=== PATIENT | female | born 1950 | race Caucasian/White ===

== ENCOUNTER 2018-04-01 05:25 | Inpatient (IN) | payer OTHER ==
[2018-03-25 13:09] LABS: HEMATOCRIT 41.3 % (37.0-47.0); HEMOGLOBIN 14.1 gm/dL (12.0-15.0); MCHC 34.2 g/dL (28.0-37.0); MCV 87.6 fL (80.0-100.0); RBC 4.71 mil/uL (4.20-5.00); RDW 13.5 % (10.5-14.5); WBC 6.4 thou/uL (4.0-11.0)
[2018-03-25 13:18] LABS: ALBUMIN 4.2 g/dL (3.4-5.0); CALCIUM 9.4 mg/dL (8.5-10.1); CREATININE 0.9 mg/dL (0.6-1.0); POTASSIUM 4.3 mmol/L (3.5-5.1)
[2018-03-25 13:21] LABS: URINE BILIRUBIN NEGATIVE (Negative); URINE BLOOD NEGATIVE (Negative); URINE CLARITY CLEAR; URINE COLOR YELLOW; URINE GLUCOSE-RANDOM* NEGATIVE (Negative); URINE KETONES NEGATIVE (Negative); URINE LEUKOCYTES-REFLEX NEGATIVE (Negative); URINE NITRITE-REFLEX NEGATIVE (Negative); URINE PROTEIN (DIPSTICK) NEGATIVE (Negative); URINE SPECIFIC GRAVITY 1.015 (1.005-1.035); URINE UROBILINOGEN 0.2 E.U./dl (0.2-1.0)
[2018-03-25 13:23] LABS: PROTIME 10.7 Seconds (9.3-11.4)
[~2018-04-01] VITALS: Ht 162.6 cm; Wt 79.8 kg
--- NOTE | ~2018-04-01 | O ---
[facility] [place] [address] OPERATIVE REPORT Name: MARCOS KELLER Room #: 150-1 ADM IN M.R.#: [id number] Admission: 04/01/18 Attend Phys: Jeff Danielle MD Discharge: Date of : 52 Report #: [id number] THIS REPORT FOR: //name// CC: Zonia Danielle DATE OF SERVICE: 04/01/2018 PREOPERATIVE DIAGNOSIS: Right hip osteoarthritis. POSTOPERATIVE DIAGNOSIS: Right hip osteoarthritis. PROCEDURE: Right total hip arthroplasty. SURGEON: Jeff Danielle MD. HEAD OF PRECISION TARGETING: Elizabeth Oneal PA-C. INDICATIONS FOR HEAD OF PRECISION TARGETING: Throughout the case, extensive retraction and manipulation of the hip was required including dislocation and reduction. This was afforded to me by my visitor service assistant. ANESTHESIA: General endotracheal. IMPLANTS: Mccabe [employer] Nephew size 12 high offset Synergy press fit stem, a size 36+4 cobalt chrome head and a size 52 R3 acetabular cup. ESTIMATED BLOOD LOSS: 150 mL. COMPLICATIONS: None. SPECIMENS: None. CONDITION UPON LEAVING THE OPERATING ROOM: Stable. INDICATION FOR PROCEDURE: The patient is a 67-year-old female with severe right hip osteoarthritis. She failed conservative measures for this and after discussion with her, she elected for right total hip arthroplasty. DESCRIPTION OF PROCEDURE: Risks, benefits, alternatives, complications were discussed in detail with the patient including but not limited to risk of anesthesia, risk of damage to nerves, arteries, blood vessels, risk for infection, bleeding, risk for continued hip pain, leg length discrepancy, instability and need for reoperation. Informed consent was obtained from the patient. Right hip was appropriately marked in the preoperative holding area. IV Ancef was given for preoperative antibiotics. She was brought to the [facility] [address] [place] [address] OPERATIVE REPORT Name: MARCOS KELLER Room #: 150-1 [facility] IN [place].Demi.#: [id number] Admission: 04/01/18 Attend Phys: Jeff Danielle MD Discharge: Date of : 52 Report #: [id number] operating room and placed in supine position on operating room table. General endotracheal anesthesia was induced without complication. She was then placed in the left lateral decubitus position with the right hip uppermost. Right hip and lower extremity were prepped and draped in normal sterile fashion. Timeout was performed properly identifying the patient and procedure as well as instrumentation. All in the operating room were in agreement. A standard posterior approach to the hip was made with 10 blade through the skin. Dissection was taken down to the fascia with Bovie cautery and a Jung elevator was used to clean off the fascia. Fresh 10 blade was used to make a fascial incision. This was taken proximally and distally with curved Kaur scissor. Charnley retractor was placed. Trochanteric bursa was taken down with Bovie cautery. Piriformis tendon was identified, tagged and taken down with Bovie. Short external rotators were also taken down with Bovie cautery. Capsulotomy was made and capsule ends were tagged for later repair. The hip was dislocated, and there was extensive osteoarthritic change of the femoral head. Femoral neck cut was made 1 cm proximal to lesser trochanter based on preoperative templating and the femoral head was removed. Deep acetabular retractors were placed. Labrum was removed sharply. Pulvinar was removed with Bovie cautery. Acetabulum was then sequentially reamed up to a size 52, at which point, there was excellent bleeding cancellous bone. This trialed with a size 51 trial and found to have a good fit. A final size 52 R3 acetabular cup was then placed and seated. One acetabular screw was placed for backup fixation and polyethylene liner for 36 head was placed. After this, attention was turned to the femur. This was reamed and broached up to a size 12, at which point a size 12 broach was stable, was trialed with a high offset neck and a 36+0 head. Hip was reduced, taken through range of motion, found to be stable, however, found to have a somewhat shortened leg length on the right compared to left. It was felt this could be made up for with final implant. Hip was dislocated and broach was removed. Final size 12 high offset Synergy press fit stem was placed. This was then trialed with a 36+4 head. Hip was reduced, taken through range of motion, found to be stable, found to have equal leg lengths. Hip was dislocated one last time, and a final size 36+4 cobalt chrome head was placed. Hip was reduced, taken through range of motion, found to be stable, found to have equal leg lengths. The hip joint was thoroughly irrigated with normal saline. Periarticular injection consisting of morphine, ropivacaine, epinephrine and Toradol was placed around the hip joint capsule. A gram of vancomycin was placed deep in the joint capsule and piriformis were repaired with 0 FiberWire. Fascia was closed with 0 Vicryl, skin was closed with 2-0 Vicryl, 3-0 Monocryl. Dermabond and a FATOU dressing were applied. The patient tolerated this procedure well and went to the recovery room under the care of Anesthesia postoperatively. By: [id number] Jeff Danielle MD /nt
[~2018-04-01 05:25] MED LIST: AMBIEN 5 MG TABL5 M1 PO; BENTYL 10 MG CA10 M1 PO; CYMBALTA30 MG PO; IPRATROPIU0.2 MG/1 M NASAL; NORCO 5-325 TA1 EACH PO; SIMVASTATIN40 MG PO; SYNTHROID75 MCG PO
[2018-04-01 11:04] VITALS: BP 132/61
[2018-04-01 17:05] VITALS: BP 109/102
[2018-04-01 19:09] VITALS: BP 144/79
[2018-04-02 04:38] VITALS: BP 121/63
--- NOTE | 2018-04-02 05:33 | NUR ---
Pt. rested quietly at intervals during the night when checked on during frequent rounds. She has been given po pain meds (see emar) for c/o right hip pain with some relief noted. Pt. has been up to the bedside comode with assist of one and gait belt. Hip precautions taken. Dressing to right hip is dry and intact.
[2018-04-02 05:54] LABS: HEMATOCRIT 29.3 % (37.0-47.0); HEMOGLOBIN 10.1 gm/dL (12.0-15.0); MCH 30.3 pg (26.0-34.0); MCHC 34.3 g/dL (28.0-37.0); MCV 88.5 fL (80.0-100.0); RBC 3.31 mil/uL (4.20-5.00); RDW 13.5 % (10.5-14.5); WBC 12.9 thou/uL (4.0-11.0)
[2018-04-02 07:52] VITALS: BP 124/62
[2018-04-02] MEDS ORDERED: NEURONTIN 300300 M1 PO (10:02)
[2018-04-02] MEDS ORDERED: TRI-BUFFERED A325 M1 PO (10:02)
--- NOTE | 2018-04-02 10:15 | NUR ---
PT ADMITTED RELATED TO RT TOTAL HIP REPLACEMENT. CM REVIEWED CHART AND SPOKE WITH CARE TEAM. CM MET WITH PT AT BEDSIDE THIS DAY PT IS A&OX4. CM ROLE INTRODUCED. PT INDICATED SHE LIVES ALONE IN A HOUSE WITH 1 STEP TO ENTER AND NO STEPS INSIDE. 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 PT IS TO PURCHASE A BSC UPON DC. PT WANTED HOME HEALTH AND WAS AGREEABLE WITH REFERRAL BEING SENT TO [facility]. PT TO HIRE AID THROUGH ANOTHER SUPPLEMENTAL INSURANCE. PT PLANS TO RETURN HOME TODAY DEPENDING ON HOW SHE DOES WITH THERAPY. CM TO FOLLOW INDICATED WITH DC PLANNING.
[2018-04-02 13:42] VITALS: BP 124/62
--- NOTE | 2018-04-02 15:17 | NUR ---
DIS PT IS FOR DC TODAY, IV DC'D. PT/OT OK FOR DC. DC PACKET PROVIDED. MED SCRIPTS GIVEN.
== END 2018-04-02 15:29 | disposition home health service (06) | DRG 470 ==
LOC: 4W 05:25 → TBA 05:25 → PRE 05:44 → 4W 17:11 → ENTRNSPT 04-02 15:16 → EDTRNSPTSTS 04-02 15:21 → 4W 04-02 15:29
PROVIDERS: ADMIT Orthopaedic Surgery
PROC: 0SR901Z Replacement of Right Hip Joint with Metal Synthetic Substitute, Open Approach (ICD-10-PCS; principal; 2018-04-01)
DX: M16.11 Unilateral primary osteoarthritis, right hip (principal); E03.9 Hypothyroidism, unspecified; E78.5 Hyperlipidemia, unspecified; F32.9 Major depressive disorder, single episode, unspecified; Z98.1 Arthrodesis status
CPT/HCPCS: 10047; 50010; 50101; 50382; 50414; 53000; 53078; 54118; 56524; 56527; 56528; 56530; 57095; 57103; 62110; 62900; 70005

== ENCOUNTER → 2018-06-13 | Outpatient (CLI) | payer OTHER ==
[~2018-06-13] MED LIST changes: +NEURONTIN 300300 M1 PO; +TRI-BUFFERED A325 M1 PO
== END ==
LOC: MRI 09:32
DX: M22.42 Chondromalacia patellae, left knee (principal); M25.551 Pain in right hip

== ENCOUNTER 2019-01-08 07:54 | Inpatient (IN) | payer OTHER ==
[2018-12-25 08:59] LABS: URINE BILIRUBIN NEGATIVE (Negative); URINE BLOOD NEGATIVE (Negative); URINE CLARITY CLEAR; URINE COLOR YELLOW; URINE GLUCOSE-RANDOM* NEGATIVE (Negative); URINE KETONES NEGATIVE (Negative); URINE LEUKOCYTES-REFLEX TRACE (Negative); URINE NITRITE-REFLEX NEGATIVE (Negative); URINE PROTEIN (DIPSTICK) NEGATIVE (Negative); URINE SPECIFIC GRAVITY 1.015 (1.005-1.035); URINE UROBILINOGEN 0.2 E.U./dl (0.2-1.0)
[2018-12-25 09:02] LABS: HEMOGLOBIN 13.3 gm/dL (12.0-15.0); MCH 29.2 pg (26.0-34.0); MCHC 33.4 g/dL (28.0-37.0); MCV 87.5 fL (80.0-100.0); RBC 4.57 mil/uL (4.20-5.00); RDW 13.4 % (10.5-14.5)
[2018-12-25 09:12] LABS: PROTIME 10.5 Seconds (9.3-11.4)
[2018-12-25 09:22] LABS: ALBUMIN 3.9 g/dL (3.4-5.0); CALCIUM 8.5 mg/dL (8.5-10.1); CREATININE 0.8 mg/dL (0.6-1.0); POTASSIUM 3.6 mmol/L (3.5-5.1)
[~2019-01-08] VITALS: Ht 152.4 cm; Wt 76.2 kg
[~2019-01-08 07:54] MED LIST changes: +CALCIUM500 MG PO; +CO-ENZYME Q-1010 MG PO; +FISH OIL 1,0001 EAC9 PO; +KONSYL300 GM PO; +MOBIC7.5 MG PO; +MOVE FREE JOIN1 EACH PO; +TURMERIC500 M2 PO
--- NOTE | 2019-01-08 13:21 | NUR ---
tHIS SLURRY BLENDER COMPLETED A PRE-SURGERY VISIT WITH THE PATIENT. SHE WAS APPRECIATIVE FOR THE VISIT.
[2019-01-08 18:21] VITALS: BP 146/91
[2019-01-08 19:44] VITALS: BP 148/89
[2019-01-09 00:37] VITALS: BP 129/77
--- NOTE | 2019-01-09 04:07 | NUR ---
PATIENT ALERT AND ORIENTED X4. C/O PAIN, MED GIVEN. ON GLUTEN FREE DIET. DRESSING ON L HIP DRY AND INTACT. HAS A FATOU DRESSING ON IT WITH AN ICE BAG. TEDS AMD SCD'S IN PLACE. HAS BRACE ON NECK D/O METAL PLATE IN NECK. SLEPT MOST OF NIGHT.
[2019-01-09 04:53] VITALS: BP 103/58
[2019-01-09 05:19] LABS: HEMATOCRIT 30.1 % (37.0-47.0); HEMOGLOBIN 10.2 gm/dL (12.0-15.0); MCH 29.4 pg (26.0-34.0); MCHC 33.7 g/dL (28.0-37.0); MCV 87.3 fL (80.0-100.0); RBC 3.45 mil/uL (4.20-5.00); RDW 12.9 % (10.5-14.5); WBC 12.3 thou/uL (4.0-11.0)
[2019-01-09 07:50] VITALS: BP 126/58
[2019-01-09] MEDS ORDERED: ASPIR 8181 MG PO (10:11)
[2019-01-09] MEDS ORDERED: NEURONTIN 300300 M1 PO (10:11)
[2019-01-09 12:45] VITALS: BP 126/58
--- NOTE | 2019-01-09 13:53 | NUR ---
ASSESSMENT-PT LIVES AT HOME ALONE. SHE ALREADY HAS A ROLLER WALKER. SHE USES A C-PAP AT . PT HAS A SHOWER CHAIR. PT HAS USED [facility] IN THE PAST AND WISHES TO USE THEM AGAIN. INFORMED HER THAT [facility] WAS RECENTLY PURCHASED BY SHANNA HERNDON. NO OTHER DC NEEDS IDENTIFIED AT THIS TIME.
--- NOTE | 2019-01-09 15:50 | NUR ---
ASSUMED CARE OF PATIENT AT 0715, PATIENT ALERT AND ORIENTED X 4. UP WITH ASSIST X 1 WITH GAIT BELT AND WALKER. PATIENT C/O PAIN WITH LEFT HIP/06/12, PATIENT GIVEN OXYCODONE 1 TABLET FOR PAIN AND MEDICATED FOR PHYSICAL THERAPY WITH SHARITA. PATIENT DID WELL WITH PHYSICAL THERAPY AND PT HAS STATED OK TO BE DISCHARGED TO HOME. PATIENT HAS HAD OXYCODONE 1 TABLET X 2 THIS SHIFT AND JUST GAVE HYDROCODONE 1 TABLET PRIOR TO DISCHARGE, PAIN HAS GOTTEN WORSE, BLOCK STARTING TO WEAR OFF, PATIENT ALSO USING ICE PACK TO LEFT HIP, AQUACEL DRESSING IN PLACE, C/D/I. ANISA/CLAIMS ADJUSTER HERE THIS AM, OK WITH DISCHARGE WHEN CLEARED BY PHYSICAL THERAPY, THIS RN PUT DISCHARGE ORDER IN COMPUTER. LEFT FOREARM IN REMOVED PRIOR TO DISCHARGE. THIS RN WENT OVER ALL DISCHARGE PAPERWORK AND SENT ALL PERSONAL BELONGINGS WITH THE PATIENT.
--- NOTE | 2019-01-21 14:57 | O ---
[facility] [place] [address] OPERATIVE REPORT Name: MARCOS KELLER Room #: 443-P [facility] IN M.R.#: [id number] Admission: 01/08/19 Attend Phys: Jeff Danielle MD Discharge: 01/09/19 Date of : 52 Report #: [id number] THIS REPORT FOR: //name// CC: Zonia Danielle DATE OF SERVICE: 01/08/2019 PREOPERATIVE DIAGNOSIS: Left hip osteoarthritis. POSTOPERATIVE DIAGNOSIS: Left hip osteoarthritis. PROCEDURE: Left total hip arthroplasty. SURGEON: Jeff Danielle MD. PAROLE AGENT: Elizabeth Oneal PA-C. INDICATIONS FOR PAROLE AGENT: Throughout the case, extensive retraction and manipulation of the hip was required including dislocation and reduction. This was afforded to me by my assistant professor of music. ANESTHESIA: LMA. IMPLANTS: Mccabe [employer] Nephew size 12, high offset Synergy press-fit stem, a size 52 R3 acetabular cup with one acetabular screw and a size 36+0 cobalt chrome head. ESTIMATED BLOOD LOSS: 50 mL. COMPLICATIONS: None. SPECIMENS: None. CONDITION UPON LEAVING THE OPERATING ROOM: Stable. INDICATIONS FOR PROCEDURE: The patient is a 68-year-old female with left hip osteoarthritis. She had failed conservative measures for this and after discussion with her, she elected for left total hip arthroplasty. DESCRIPTION OF PROCEDURE: Risks, benefits, alternatives, complications were discussed in detail with the patient including but not limited to risk of anesthesia, risk of damage to nerves, arteries, blood vessels, risk for infection, bleeding, risk for continued hip pain, leg length discrepancy, instability and need for reoperation. Informed consent was obtained from the patient. Left hip was appropriately marked in the preoperative holding area. [address] [address] OPERATIVE REPORT Name: ARIANNAMARCOS J Room #: 443-P [facility] IN .Demi.#: [id number] Admission: 01/08/19 Attend Phys: Jeff Danielle MD Discharge: 01/09/19 Date of : 52 Report #: [id number] IV Ancef was given for preoperative antibiotics. She was brought to the operating room and placed in the supine position on the operating room table. LMA anesthesia was induced without complications. She was then placed in the right lateral decubitus position with the left hip uppermost. Left hip and lower extremity were then prepped and draped in normal sterile fashion. Timeout was performed properly identifying the patient and procedure as well as instrumentation. All in the operating room were in agreement. Standard posterior approach to the hip was made with 10 blade through the skin. Dissection was taken down to fascia with Bovie cautery and a Jung elevator was used to clean the fascia. Fresh 10 blade was used to make a fascial incision. This was taken proximally and distally with curved Kaur scissor. Charnley retractor was placed. Trochanteric bursa was taken down with Bovie cautery. Short external rotators were taken down with Bovie cautery. Piriformis tendon was identified, tagged, and taken down with Bovie. Capsulotomy was made and capsule ends were tagged for later repair and the hip was dislocated. There was extensive osteoarthritic change of the femoral head. Femoral neck cut was made 1 cm proximal to lesser trochanter based on preoperative templating and the femoral head was removed. Deep acetabular retractors were placed and labrum was removed sharply. Pulvinar was removed with Bovie cautery. Acetabulum was then sequentially reamed up to a size 52, at which point, there was excellent bleeding cancellous bone. A final size 52 R3 acetabular cup was placed and seated. One acetabular screw was placed for backup fixation and polyethylene liner for a 36 head was placed. Attention was then turned to the femur. This was reamed and broached up to a size 12, at which point, the size 12 broach was stable, was trialed with a high offset neck and a 36+0 head. Hip was reduced, taken through range of motion, found to be stable, found to have equal leg lengths. Hip was dislocated and broach was removed. Final size 12 high offset Synergy press-fit stem was placed. This was then trialed again with a 36+0 cobalt chrome head. Hip was reduced, taken through range of motion, found to be stable, found to have equal leg lengths. Hip was dislocated one last time and a trial head was removed. A final size 36+0 cobalt chrome head was then placed. Hip was reduced, taken through range of motion, found to be stable, found to have equal leg lengths. The hip was thoroughly irrigated with normal saline. A periarticular injection consisting of morphine, ropivacaine, epinephrine, and Toradol was placed around the hip joint capsule. A gram of vancomycin was placed deep in the joint. The capsule and piriformis were repaired with 0 FiberWire. Fascia was closed with 0 Vicryl, skin was closed with 2-0 Vicryl, 3-0 Monocryl, Dermabond, and a FATOU dressing was applied. The patient tolerated this procedure well and went to recovery room under care of Anesthesia postoperatively. <ELECTRONICALLY SIGNED> By: Jeff Danielle MD 01/21/19 1457 [id number] [id number] Jeff Danielle MD /nt
== END 2019-01-09 15:57 | disposition home health service (06) | DRG 470 ==
LOC: PRE 07:54 → TBA 09:57 → 4S 09:57 → ENTRNSPT 01-09 15:43 → EDTRNSPTSTS 01-09 15:51 → 4S 01-09 15:57
PROVIDERS: ADMIT Orthopaedic Surgery
PROC: 0SRB01A Replacement of Left Hip Joint with Metal Synthetic Substitute, Uncemented, Open Approach (ICD-10-PCS; principal; 2019-01-08)
DX: M16.12 Unilateral primary osteoarthritis, left hip (principal); Z79.899 Other long term (current) drug therapy; Z79.82 Long term (current) use of aspirin
CPT/HCPCS: 10102; 50010; 50101; 50382; 50414; 53000; 53078; 53367; 54118; 56524; 56527; 56528; 56530; 57095; 57103; 62110; 62900; 70005